=== PATIENT | male | born 1990 | race Caucasian/White ===

== ENCOUNTER 2023-05-01 15:04 | Emergency (ER) | payer SELFPAY ==
[~2023-05-01] VITALS: Ht 182.9 cm; Wt 86.2 kg
[2023-05-01 15:20] VITALS: BP_SYST 129; PULSE 80; RESP 18; TEMP 97.3; O2SAT 98
== END 2023-05-03 | disposition left against medical advice (07) ==
LOC: SED 05-03 15:04
DX: R53.1 Weakness (principal); F12.90 Cannabis use, unspecified, uncomplicated; F10.90 Alcohol use, unspecified, uncomplicated; Z79.899 Other long term (current) drug therapy; Y90.6 Blood alcohol level of 120-199 mg/100 ml
CPT/HCPCS: 99281